=== PATIENT | female | born 1975 | race American Indian/Alaskan Native ===

== ENCOUNTER 2017-11-08 16:43 | Emergency (ER) | payer OTHER ==
[~2017-11-08] VITALS: Ht 167.6 cm; Wt 74.8 kg
[2017-11-08] MEDS ORDERED: CYCLOBENZAPRINE10 MG PO (16:56)
[2017-11-08] MEDS ORDERED: PREDNISONE20 MG PO (16:56)
[2017-11-08] MEDS ORDERED: IBUPROFEN600 MG PO (16:56)
[2017-11-08] MEDS ORDERED: TYLENOL EXTRA500 MG PO (16:57)
[2017-11-08] MEDS ORDERED: ZESTRIL5 MG PO (16:57)
[2017-11-08] MEDS ORDERED: OMEPRAZOLE20 MG PO (19:36)
[2017-11-08] MEDS ORDERED: FERROUS SULFAT324 MG PO (19:37)
== END 2017-11-08 19:44 | disposition home or self-care (01) ==
LOC: ED 16:43
DX: D50.0 Iron deficiency anemia secondary to blood loss (chronic) (principal); I10 Essential (primary) hypertension; F17.200 Nicotine dependence, unspecified, uncomplicated; Z98.51 Tubal ligation status; Z79.52 Long term (current) use of systemic steroids; Z79.899 Other long term (current) drug therapy
CPT/HCPCS: 80053; 85025; 86850; 86900; 86901; 99283